=== PATIENT | female | born 2005 | race Caucasian/White ===

== ENCOUNTER 2024-05-29 08:17 | Outpatient (AMB) | payer OTHER, SELFPAY ==
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
[2024-05-29 08:46] VITALS: BP 94/60; PULSE 110; O2SAT 98; BMI 18.3
== END 2024-05-29 09:20 | disposition home or self-care (01) ==
PROVIDERS: Visit Provider Physician Assistant
DX: J01.00 Acute maxillary sinusitis, unspecified (principal); H60.393 Other infective otitis externa, bilateral; T24.009A Burn of unspecified degree of unspecified site of unspecified lower limb, except ankle and foot, initial encounter

== ENCOUNTER → 2024-05-29 08:17 | Outpatient (BNVA) | payer OTHER, SELFPAY | PROVIDERS: Visit Provider Physician Assistant | DX: J01.00 Acute maxillary sinusitis, unspecified (principal); T24.402A Corrosion of unspecified degree of unspecified site of left lower limb, except ankle and foot, initial encounter; T24.401A Corrosion of unspecified degree of unspecified site of right lower limb, except ankle and foot, initial encounter; T65.91XA Toxic effect of unspecified substance, accidental (unintentional), initial encounter; Y93.9 Activity, unspecified; Y92.9 Unspecified place or not applicable; Y99.0 Civilian activity done for income or pay | CPT/HCPCS: 99202 ==